=== PATIENT | female | born 1995 | race Asian ===

== ENCOUNTER 2017-09-17 08:45 | Emergency (ER) | payer OTHER ==
[2017-09-17 08:51] VITALS: TEMP 98.2
[2017-09-17] MEDS ORDERED: NS 1,000 ML IV ONE ×2 (08:56→09:57)
--- NOTE | 2017-09-17 09:05 | EDPHY ---
H & P Stated Complaint: intentional tylenol pm OD - Personal History LMP (Females 10-55): Extended Cycle BCP/Inj Current Tetanus/Diphtheria Vaccine: Yes - Medical/Surgical History Hx Asthma: No Hx Chronic Respiratory Disease: No Hx Diabetes: No Hx Cardiac Disease: No Hx Renal Disease: No Hx Cirrhosis: No Hx Alcoholism: No Hx HIV/AIDS: No Hx Splenectomy or Spleen Trauma: No Other PMH: denies - Social History Smoking Status: Never smoked Time Seen by Provider: 09/17/17 08:55 HPI/ROS: CHIEF COMPLAINT: Intentional Tylenol overdose and laceration to wrist HISTORY OF PRESENT ILLNESS: 21-year-old female history of depression, anxiety, arrives in the ER via private vehicle with mother the after the mother's ex- informed her that the patient consumed 14-15, Tylenol p.m. sequentially at 0300 hr today . She states that she did this because "the world was too much ". She denies specific suicidal ideation. She also states that she the lacerated her wrists. REVIEW OF SYSTEMS: A ten point review of systems was performed and is negative with the exception of the items mentioned in the HPI PAST MEDICAL & SURGICAL HISTORY: Depression, anxiety SOCIAL HISTORY: Denies alcohol or drug use PHYSICAL EXAM (Prior to examination, patient consented to physical exam, hands were washed and my usual and customary physical exam procedures followed) 1) GENERAL: Well-developed, well-nourished, alert and oriented. Appears to be in no acute distress. Depressed, flat affect, withdrawn 2) HEAD: Normocephalic, atraumatic 3) HEENT: Pupils equal, round, reactive to light bilaterally. Sclera anicteric. Nasopharynx, oropharynx, clear, no lesions. Dry mucous membranes. 4) NECK: Full range of motion, no meningeal signs. 5) LUNGS: Clear auscultation bilaterally, no wheezes, no rhonchi, no retractions. 6) HEART: Regular rate and rhythm, no murmur, no heave, no gallop. 7) ABDOMEN: No guarding, no rebound, no focal tenderness, negative McBurney's, negative Sahu's, negative Rovsing's, negative peritoneal sign, 8) MUSCULOSKELETAL: Right volar wrist superficial abrasion. Right greater trochanteric region superficial abrasion. Moving all extremities, no focal areas of tenderness, no obvious trauma. No peripheral edema or discoloration. 9) BACK: No CVA tenderness, no midline vertebral tenderness, no fluctuance, no step-off, no obvious trauma, no visual or palpable abnormality. 10) SKIN: No rash, no petechiae. 11) Psychiatric: Patient is oriented X 3, there is no agitation. Withdrawn, depressed, flat affect DIFFERENTIAL DIAGNOSIS: In no particular order including but not limited to depression, suicidal ideation, homicidal ideation (Dax Beasley Aditi) Constitutional: Initial Vital Signs Temperature (C) 36.8 C 09/17/17 08:48 Heart Rate 120 H 09/17/17 08:48 Respiratory Rate 20 09/17/17 08:48 Blood Pressure 132/71 H 09/17/17 08:48 O2 Sat (%) 98 09/17/17 08:48 O2 Delivery Mode Room Air Allergies/Adverse Reactions: No Known Allergies Allergy (Unverified 09/17/17 08:46) Home Medications: Medication Instructions Recorded Lo Loestrin Fe 1-10 Tablet 09/17/17 Nexplanon 09/17/17 Medical Decision Making ED Course/Re-evaluation: 9:13 a.m.: Discussed case with secondary supervising physician Dr. Shawn Shelton in the ER. Patient was placed on M1 hold as we think she presents an imminent danger to herself, self injurious behavior, intentional overdose. Intentional ingestion at 3:00 a.m. today. 10:24 a.m.: Patient's Tylenol level is resulted at this time, result of 73 mcg/ mL at 6 hours post ingestion, which, after 6 hrs ingestion the subject's acetaminophen level is less than the treatment threshold of 106.07 mcg/mL . I will obtain a repeat CT manifest blood draw at 11:06 a.m. which be 2 hr after the initial blood draw was performed to ensure that the levels are trending downward. 11:40 a.m.: Patient is Tylenol levels progressively down trending 5:00 p.m.: Care turned over to Dr. Huang. Mental health hotel engineer currently seeking placement. (Dax Beasley Aditi) Other Provider: I assumed care of the patient at 5:00 p.m. pending psychiatric disposition. Update at 7:30 p.m.: The patient has been accepted for inpatient psychiatric hospitalization at [facility] by Dr. Grimaldo. I have filled out the EMTALA transfer form. (Javid Huang) - Data Points Laboratory Results: Laboratory Results 09/17/17 09:06 09/17/17 09:06 Medications Given: Discontinued Medications Sodium Chloride (Ns) 1,000 mls @ 0 mls/hr IV ONCE ONE PRN Reason: Wide Open Stop: 09/17/17 08:57 Last Admin: 09/17/17 09:22 Dose: 1,000 mls Sodium Chloride (Ns) 1,000 mls @ 0 mls/hr IV ONCE ONE PRN Reason: Wide Open Stop: 09/17/17 09:58 Last Admin: 09/17/17 09:58 Dose: 1,000 mls Ondansetron HCl (Zofran) 4 mg IVP EDNOW ONE Stop: 09/17/17 12:01 Last Admin: 09/17/17 12:30 Dose: 4 mg Departure - Departure Disposition: Other Psych, Not [place] Clinical Impression: Suicidal ideation, Overdose on Tylenol, History of depression, History of anxiety, Attempted suicide Condition: Fair Referrals: NONE *PRIMARY CARE P,. [Unknown] - As per Instructions
--- NOTE | 2017-09-17 09:06 | CPEKG ---
Heart Rate: 93 RR Interval: 645 QRSD Interval: 84 QT Interval: 364 QTC Interval: 453 QRS [place]: 139 T Wave [place]: -7 EKG Severity - ABNORMAL ECG - EKG Impression: Sinus rhythm with artifact EKG Impression: RIGHT AXIS DEVIATION EKG Impression: BORDERLINE T ABNORMALITIES, INFERIOR LEADS Electronically Signed By: Jed Alvarado 19-Sep-2017 07:34:31
[2017-09-17 09:20] LABS: PLATELET COUNT 200 10^3/uL (150-400)
[2017-09-17] MEDS ORDERED: ONDANSETRON 4 MG/2 ML VIAL ONE (11:39)
[2017-09-17] MEDS ORDERED: ONDANSETRON 4 MG/2 ML VIAL IVP ONE (12:00)
[2017-09-17 20:22] VITALS: BP 98/51; PULSE 76; RESP 17; O2SAT 97
== END 2017-09-17 20:47 ==
PROC: GZ11ZZZ Psychological Tests, Personality and Behavioral (ICD-10-PCS; principal; 2017-09-17)
DX: T39.1X2A Poisoning by 4-Aminophenol derivatives, intentional self-harm, initial encounter (principal); Z86.59 Personal history of other mental and behavioral disorders
CPT/HCPCS: 80305; 96374; G0480; J2405